=== PATIENT | male | born 1990 | race Caucasian/White ===

== ENCOUNTER → 2019-08-29 | Outpatient (CLI) | payer SELFPAY ==
[2019-08-29 16:20] LABS: HEMATOCRIT 43.1 % (42.0-52.0); HEMOGLOBIN 14.6 g/dL (13.5-18.0); MEAN PLATELET VOLUME 9.1 fl (7.4-10.4); RED BLOOD COUNT 5.14 M/mm3 (4.20-5.60); RED CELL DISTRIBUTION WIDTH 13.6 % (11.5-14.5); WHITE BLOOD COUNT 8.2 K/mm3 (4.8-10.8)
[2019-09-01 13:34] LABS: LEAD 1.7 mcg/dL (<5.0)
== END ==
LOC: LAB 15:45
PROVIDERS: Family Medicine
DX: Z77.011 Contact with and (suspected) exposure to lead (principal)

== ENCOUNTER 2020-11-14 18:40 | Inpatient (IN) | payer OTHER, BC ==
[~2020-11-14] VITALS: Ht 188 cm; Wt 74.7 kg
[2020-11-14 19:47] VITALS: BP 121/72
[2020-11-14 22:12] VITALS: BP 129/67
[2020-11-15 02:16] VITALS: BP 107/57
[2020-11-15 05:37] VITALS: BP 116/65
[2020-11-15 06:49] LABS: BASO # 0.06 K/mm3 (0.02-0.10); EOS # 0.45 K/mm3 (0.04-0.40); EOS % 5.4 % (0.0-4.0); HEMATOCRIT 43.4 % (42.0-52.0); HEMOGLOBIN 14.6 g/dL (13.5-18.0); LYMPH# 2.18 K/mm3 (1.50-4.00); MEAN CELL VOLUME 85 fl (78-100); MEAN CORPUSCULAR HEMOGLOBIN 29 pg (27-31); MEAN CORPUSCULAR HGB CONC 34 g/dL (33-37); MEAN PLATELET VOLUME 8.7 fl (7.4-10.4); MONO # 0.66 K/mm3 (0.20-0.80); NEU # 4.92 K/mm3 (1.40-6.50); PLATELET COUNT 292 K/mm3 (130-400); RED BLOOD COUNT 5.13 M/mm3 (4.20-5.60); RED CELL DISTRIBUTION WIDTH 13.1 % (11.5-14.5); WHITE BLOOD COUNT 8.3 K/mm3 (4.8-10.8)
[2020-11-15 07:01] LABS: POTASSIUM 4.3 mmol/L (3.5-5.1)
[2020-11-15 07:03] LABS: CALCIUM 9.3 mg/dL (8.3-10.5)
[2020-11-15 10:29] VITALS: BP 125/74
[2020-11-15 14:33] VITALS: BP 110/68
[2020-11-15 17:45] VITALS: BP 125/69
[2020-11-15 22:21] VITALS: BP 119/71
[2020-11-16 05:40] VITALS: BP 98/63
[2020-11-16] MEDS ORDERED: BACTRIM DS TAB1 EACH PO (09:27)
[2020-11-16 09:41] VITALS: BP 126/75
== END 2020-11-16 09:42 | disposition home or self-care (01) | DRG 603 ==
LOC: MED/SURG 18:40
PROVIDERS: ADMIT Physician Assistant
DX: L03.113 Cellulitis of right upper limb (principal); L02.414 Cutaneous abscess of left upper limb; Z88.1 Allergy status to other antibiotic agents
CPT/HCPCS: A9585; J2543; J3370; J7050

== ENCOUNTER → 2020-11-14 | Outpatient (CLI) | payer BC ==
[~2020-11-14] MED LIST: BACTRIM DS TAB1 EACH PO
[2020-11-14 16:07] LABS: BASO # 0.06 K/mm3 (0.02-0.10); EOS # 0.41 K/mm3 (0.04-0.40); EOS % 3.4 % (0.0-4.0); HEMATOCRIT 43.9 % (42.0-52.0); HEMOGLOBIN 14.9 g/dL (13.5-18.0); LYMPH# 2.79 K/mm3 (1.50-4.00); MEAN CELL VOLUME 84 fl (78-100); MEAN CORPUSCULAR HEMOGLOBIN 29 pg (27-31); MEAN CORPUSCULAR HGB CONC 34 g/dL (33-37); MEAN PLATELET VOLUME 8.5 fl (7.4-10.4); MONO # 0.82 K/mm3 (0.20-0.80); NEU # 8.04 K/mm3 (1.40-6.50); PLATELET COUNT 296 K/mm3 (130-400); RED BLOOD COUNT 5.22 M/mm3 (4.20-5.60); WHITE BLOOD COUNT 12.1 K/mm3 (4.8-10.8)
[2020-11-14 16:32] LABS: CALCIUM 9.9 mg/dL (8.3-10.5)
== END ==
LOC: LAB 15:48
PROVIDERS: Family Medicine
DX: L03.113 Cellulitis of right upper limb (principal)